=== PATIENT | female | born 1950 | race Caucasian/White ===

== ENCOUNTER 2017-08-07 05:08 | Emergency (ER) | payer MEDICARE ==
[~2017-08-07] VITALS: Ht 165.1 cm; Wt 80.4 kg
[2017-08-07] MEDS ORDERED: VALIUM2 MG PO (05:36)
[2017-08-07] MEDS ORDERED: SUDAFED CONGEST30 MG PO (05:37)
[2017-08-07] MEDS ORDERED: AMOXICILLIN500 M2 PO (05:51)
[2017-08-07] MEDS ORDERED: BACTRIM DS1 TAB PO (05:51)
[2017-08-07] MEDS ORDERED: POLYMYXIN B/ OS (05:51)
[2017-08-07 06:23] VITALS: BP 132/86
== END 2017-08-07 06:23 | disposition home or self-care (01) ==
LOC: ED 05:08
DX: H10.9 Unspecified conjunctivitis (principal); H00.034 Abscess of left upper eyelid